=== PATIENT | female | born 1975 | race Caucasian/White ===

== ENCOUNTER 2023-08-14 17:29 | Emergency (ER) | payer OTHER, SELFPAY ==
--- NOTE | ~2023-08-14 | XR_ITS ---
EXAMINATION: XR elbow LT min 3V DATE: 08/14/2023 17:47 INDICATION: Fall. TECHNIQUE: 4 views of left elbow were obtained. COMPARISON: None. FINDINGS: Bone alignment is normal. No fracture. There is mild elbow joint osteoarthritis. No elbow j oint effusion. There is soft tissue swelling overlying the olecranon. IMPRESSION: 1. Mild elbow joint osteoarthritis. Reviewed, dictated and finalized at location E.
[2023-08-14 17:32] VITALS: BP 133/85; PULSE 84; TEMP 36.9; O2SAT 100
--- NOTE | 2023-08-14 19:19 | PC.NURSE ---
Pt ambulated to the desk and asked how she could see her test results, pt was provided with a [facility] portal brochure. Pt then stated she was going to follow up with her PCP tomorrow morning. Pt then ambulated out of the ED.
--- NOTE | 2023-08-14 19:31 | PC.NURSE ---
no answer at triage for vital signs
== END 2023-08-14 19:32 | disposition left against medical advice (07) ==
PROVIDERS: Emergency Provider Student in an Organized Health Care Education/Training Program; PCP Nurse Practitioner Family
DX: S59.902A Unspecified injury of left elbow, initial encounter (principal)
CPT/HCPCS: 73080; 99199

== ENCOUNTER 2025-03-02 22:55 | Emergency (ER) | payer OTHER, SELFPAY ==
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
--- NOTE | ~2025-03-02 | CT_ITS ---
EXAM/PROCEDURE: CT elbow LT wo con HISTORY: surgical planning, distal humerus fx COMPARISON: X-rays same date TECHNIQUE: Left elbow CT FINDINGS: Mildly comminuted minimally displaced fracture of the lateral distal epicondyle. No pathologic lesion is seen. No other fractures seen. Moderate amount soft tissue swelling and probable hematoma in the subcutaneous soft tissues. Small joint effusion. The fracture lucency extends down to the lateral margin of the radiocapitellar articulation. The radiocapitellar articulation is in anatomic alignment and the articulating surfaces appear almost completely intact. IMPRESSION: Minimally displaced mildly comminuted fracture of the lateral epicondyle extending into the lateral most margin of the radiocapitellar joint with articulating surfaces otherwise in good alignment and intact. Reviewed, dictated and finalized at location A. [employer] IMPRESSION: Minimally displaced mildly comminuted fracture of the lateral epicondyle extend ing into the lateral most margin of the radiocapitellar joint with articulating surfaces otherwise in good alignment and intact.
[2025-03-02 22:46] VITALS: BP 166/108; PULSE 107; RESP 20; TEMP 36.6; O2SAT 100
[2025-03-02 23:31] VITALS: BP 171/101; RESP 18; O2SAT 100
[2025-03-02 23:46] VITALS: BP 169/104; PULSE 100; RESP 16; O2SAT 100
[2025-03-03] MEDS: MORPHINE SULFATE (*CRX) 4 MG/ML INJ IV PUSH ×2 (00:33→02:05)
[2025-03-03] MEDS: ONDANSETRON INJ 4 MG/2 ML VIAL IV PUSH (00:34)
[2025-03-03 01:00] VITALS: BP 158/93; PULSE 99; RESP 14; O2SAT 100
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
[2025-03-03 01:30] VITALS: BP 158/98; RESP 16; O2SAT 100
[2025-03-03] MEDS: KETOROLAC 30 MG/ML VIAL (*BKC) IV PUSH (02:05)
[2025-03-03 03:56] VITALS: BP 153/106; PULSE 98; RESP 12; O2SAT 100
== END 2025-03-03 03:37 | disposition home or self-care (01) ==
PROVIDERS: Emergency Provider Physician Assistant
DX: S42.435A Nondisplaced fracture (avulsion) of lateral epicondyle of left humerus, initial encounter for closed fracture (principal); F17.290 Nicotine dependence, other tobacco product, uncomplicated; Z86.73 Personal history of transient ischemic attack (TIA), and cerebral infarction without residual deficits; Y00.XXXA Assault by blunt object, initial encounter
CPT/HCPCS: 29105; 73080; 73200; 96374; 96375; 96376; 99284; A4565; J1885; J2270; J2405